=== PATIENT | male | born 1965 | race Caucasian/White ===

== ENCOUNTER 2020-11-13 10:00 | Emergency (ER) | payer BC, OTHER ==
[~2020-11-13] VITALS: Ht 175.2 cm; Wt 109.0 kg
--- NOTE | 2020-11-13 10:16 | ED Chest Pain ---
General Chief Complaint: Chest Pain Stated Complaint: CHEST PAIN History of Present Illness Date Seen by Provider: Nov 13, 2020 Time Seen by Provider: 10:10 Initial Comments 55-year-old male presents with right-sided chest pain along with pain in his ne ck and jaw. He does state however he has had problems with tooth pain and ear infection. Patient reports that the pain has been gone for about 2 hours. Patient reports nothing seems to make the pain better or worse. He denies any fever or chills. He does have a mild cough. He is fully vaccinated for coronavirus. Patient also reports a headache, no nausea vomiting diarrhea. He denies any sore throat. Allergies and Home Medications Allergies Coded Allergies: No Known Drug Allergies (Unverified , 11/13/20) Patient Home Medication List Home Medication List Reviewed: Yes Review of Systems Review of Systems Constitutional: No chills, No dizziness, No fever Respiratory: Cough Cardiovascular: Chest Pain Gastrointestinal: Denies Abdominal Pain, Denies Nausea, Denies Vomiting Musculoskeletal: no symptoms reported Skin: no symptoms reported Psychiatric/Neurological: Headache Endocrine: No Symptoms Reported Physical Exam Vital Signs Vital Signs - First Documented 11/13/20 10:00 Temp 36.8 Pulse 87 Resp 20 B/P (MAP) 146/80 (102) Pulse Ox 98 O2 Delivery Room Air Capillary Refill : Height, Weight, BMI Height: '" Weight: lbs. oz. kg; BMI Method: General Appearance: No Apparent Distress, WD/WN HEENT: PERRL/EOMI Neck: Non Tender, Supple Respiratory: Lungs Clear, Normal Breath Sounds Cardiovascular: Regular Rate, Rhythm, No Edema Gastrointestinal: Non Tender, Soft Extremity: Normal Capillary Refill, Normal Inspection, Normal Range of Motion Neurologic/Psychiatric: Alert, Oriented x3, No Motor/Sensory Deficits, Normal Mood/Affect, international travel consultant II-XII Norm as Tested Skin: Normal Color, Warm/Dry Progress/Results/Core Measures Results/Orders Lab Results Laboratory Tests Test 11/13/20 10:10 11/13/20 10:15 Range/Units White Blood Count 10.7 4.3-11.0 10^3/uL Red Blood Count 4.56 4.30-5.52 10^6/uL Hemoglobin 13.8 13.3-17.7 g/dL Hematocrit 43 40-54 % Mean Corpuscular Volume 94 80-99 fL Mean Corpuscular Hemoglobin 30 25-34 pg Mean Corpuscular Hemoglobin Concent 32 32-36 g/dL Red Cell Distribution Width 13.6 10.0-14.5 % Platelet Count 312 130-400 10^3/uL Mean Platelet Volume 9.0 9.0-12.2 fL Immature Granulocyte % (Auto) 1 % Neutrophils (%) (Auto) 75 42-75 % Lymphocytes (%) (Auto) 15 12-44 % Monocytes (%) (Auto) 7 0-12 % Eosinophils (%) (Auto) 2 0-10 % Basophils (%) (Auto) 1 0-10 % Neutrophils # (Auto) 8.0 H 1.8-7.8 X 10^3 Lymphocytes # (Auto) 1.6 1.0-4.0 X 10^3 Monocytes # (Auto) 0.7 0.0-1.0 X 10^3 Eosinophils # (Auto) 0.2 0.0-0.3 10^3/uL Basophils # (Auto) 0.1 0.0-0.1 10^3/uL Immature Granulocyte # (Auto) 0.1 0.0-0.1 10^3/uL Prothrombin Time 13.0 12.2-14.7 SEC INR Comment 1.0 0.8-1.4 Activated Partial Thromboplast Time 33 24-35 SEC Sodium Level 139 135-145 MMOL/L Potassium Level 3.6 3.6-5.0 MMOL/L Chloride Level 101 98-107 MMOL/L Carbon Dioxide Level 26 21-32 MMOL/L Anion Gap 12 5-14 MMOL/L Blood Urea Nitrogen 12 7-18 MG/DL Creatinine 0.73 0.60-1.30 MG/DL Estimat Glomerular Filtration Rate 111 BUN/Creatinine Ratio 16 Glucose Level 207 H 70-105 MG/DL Calcium Level 9.0 8.5-10.1 MG/DL Corrected Calcium 9.0 8.5-10.1 MG/DL Magnesium Level 1.7 1.6-2.4 MG/DL Total Bilirubin 0.3 0.1-1.0 MG/DL Aspartate Amino Transf (AST/SGOT) 53 H 5-34 U/L Alanine Aminotransferase (ALT/SGPT) 36 0-55 U/L Alkaline Phosphatase 119 40-136 U/L Myoglobin < 21.0 10.0-92.0 NG/ML Troponin I < 0.30 <0.30 NG/ML C-Reactive Protein 3.97 H <0.50 MG/DL Total Protein 7.4 6.4-8.2 GM/DL Albumin 4.0 3.2-4.5 GM/DL My Orders Orders - JOSE MATTHEWS DO Cbc With Automated Diff (11/13/20 10:16) Magnesium (11/13/20 10:16) Chest 1 View Ap/Pa Only (11/13/20 10:16) Ekg Tracing (11/13/20 10:16) Comprehensive Metabolic Panel (11/13/20 10:16) Myoglobin Serum (11/13/20 10:16) Protime With Inr (11/13/20 10:16) Partial Thromboplastin Time (11/13/20 10:16) Monitor-Rhythm Ecg Trace Only (11/13/20 10:16) Lipid Panel (11/14/20 06:00) Aspirin Chewable Tablet (Baby Aspirin Ch (11/13/20 10:30) Ed Iv/Invasive Line Start (11/13/20 10:16) Troponin I Fs (11/13/20 10:16) Covid 19 Inhouse Test (11/13/20 10:16) Crp Fs (11/13/20 10:41) Medications Given in ED Current Medications Medications Dose Ordered Sig/Jason Route Start Time Stop Time Status Last Admin Dose Admin Aspirin 324 mg ONCE ONCE PO 11/13/20 10:30 11/13/20 10:31 DC 11/13/20 10:21 324 MG Vital Signs/I&O 11/13/20 10:00 Temp 36.8 Pulse 87 Resp 20 B/P (MAP) 146/80 (102) Pulse Ox 98 O2 Delivery Room Air Progress Progress Note : Progress Note Patient with likely viral right lower lobe pneumonia with pleural effusion. Patient also has probably a dental infection with quite a bit of pain and his tooth and going into his ear. I will treat him for the dental infection. Discussed with him that the pneumonia seems to be viral and there is no treatment for supportive care. Patient should drink plenty of fluids Tylenol and ibuprofen as needed and is discharged home. Initial ECG Impression Date: Nov 13, 2020 Initial ECG Impression Time: 10:03 Initial ECG Rate: 88 Initial ECG Rhythm: Normal Sinus Initial ECG Intervals incomplete RBBB Initial ECG Impression: Nonspecific Changes Diagnostic Imaging Diagonstic Imaging: Xray Plain Films/CT/US/NM/MRI: chest Comments Date of Exam:11/13/20 CHEST 1 VIEW AP/PA ONLY INDICATION: Chest pain. TIME OF EXAM: 10:10 AM No prior studies are available for comparison. The heart size is normal. There appears to be some infiltrate or atelectasis in the right base as well as a small right effusion. Left lung is clear. No pneumothorax is detected. IMPRESSION: Right basilar infiltrate or atelectasis and small right effusion. Reviewed: Reviewed by Me, Reviewed/Discussed Departure Impression Primary Impression: Dental infection Additional Impression: Viral pneumonia, unspecified Disposition: HOME, SELF-CARE Condition: Stable Departure-Patient Inst. Referrals: LORNA LEMUS APRN (PCP/Family) Primary Care Physician Patient Instructions: Dental Pain, Pneumonia, Adult ED, VIRAL SYNDROME Add. Discharge Instructions: Tylenol or ibuprofen as needed Drink plenty of fluids and stay well-hydrated Follow-up with your primary care provider next week for recheck of today's symptom All discharge instructions reviewed with patient and/or family. Voiced understanding. Scripts Amoxicillin (Amoxicillin) 500 Mg Capsule 500 MG PO TID, #21 CAP 0 Refills Prov: JOSE MATTHEWS DO 11/13/20 JOSE MATTHEWS DO Nov 13, 2020 10:15
--- OUTSIDE RECORDS SUMMARY | 2020-11-13 10:19 | XMS REPORT | Clinical Summary ---
Author Author [facility] Organization [facility] Address Unknown Phone Unavailable Care Team Providers Care Web Press Roll Tender Name Role Phone PCP Unavailable Allergies Not on File Medications Not on file Active Problems Not on file Social History Date Tobacco Use Types Packs/Day Years Used Never Assessed Sex Assigned at Date Recorded Not on file Last Filed Vital Signs Not on file Plan of Treatment Not on file Results Not on filefrom Last 3 Months
[2020-11-13 10:24] LABS: WHITE BLOOD COUNT 10.7 10^3/uL (4.3-11.0)
[2020-11-13 10:25] LABS: BASOPHILS % (AUTO) 1 % (0-10); EOSINOPHILS % (AUTO) 2 % (0-10); HEMATOCRIT 43 % (40-54); HEMOGLOBIN 13.8 g/dL (13.3-17.7); LYMPHOCYTES % (AUTO) 15 % (12-44); MEAN CORPUSCULAR HEMOGLOBIN 30 pg (25-34); MEAN CORPUSCULAR HGB CONC 32 g/dL (32-36); MEAN CORPUSCULAR VOLUME 94 fL (80-99); MONOCYTES % (AUTO) 7 % (0-12); NEUTROPHILS % (AUTO) 75 % (42-75); PLATELET COUNT 312 10^3/uL (130-400)
[2020-11-13 10:26] LABS: BASOPHILS # (AUTO) 0.1 10^3/uL (0.0-0.1); EOSINOPHILS # (AUTO) 0.2 10^3/uL (0.0-0.3); LYMPHOCYTES # (AUTO) 1.6 X 10^3 (1.0-4.0); MONOCYTES # (AUTO) 0.7 X 10^3 (0.0-1.0)
[2020-11-13] MEDS ORDERED: ASPIRIN 81 MG CHEW (CHILDREN'S ASA) PO ONE (10:30)
--- NOTE | 2020-11-13 10:37 | Diagnostic Imaging Report ---
INDICATION: Chest pain. TIME OF EXAM: 10:10 AM No prior studies are available for comparison. The heart size is normal. There appears to be some infiltrate or atelectasis in the right base as well as a small right effusion. Left lung is clear. No pneumothorax is detected. IMPRESSION: Right basilar infiltrate or atelectasis and small right effusion. Dictated by: Dictated on workstation # [id number]
[2020-11-13 11:21] LABS: BUN/CREATININE RATIO 16; CARBON DIOXIDE 26 MMOL/L (21-32); CHLORIDE 101 MMOL/L (98-107); CREATININE SERUM 0.73 MG/DL (0.60-1.30); GFR ESTIMATED 111; POTASSIUM 3.6 MMOL/L (3.6-5.0); SODIUM 139 MMOL/L (135-145)
[2020-11-13 11:22] LABS: ALANINE AMINOTRANSFERASE 36 U/L (0-55); ALKALINE PHOSPHATASE 119 U/L (40-136); BILIRUBIN,TOTAL 0.3 MG/DL (0.1-1.0); GLUCOSE 207 MG/DL (70-105); MAGNESIUM 1.7 MG/DL (1.6-2.4); TOTAL PROTEIN 7.4 GM/DL (6.4-8.2)
[2020-11-13] MEDS ORDERED: AMOX500C2 PO (11:35)
[2020-11-13 11:39] VITALS: BP 140/83
== END 2020-11-13 11:39 | disposition home or self-care (01) ==
LOC: ER FS 10:01
DX: K04.7 Periapical abscess without sinus (principal); J12.9 Viral pneumonia, unspecified; Z20.822 Contact with and (suspected) exposure to COVID-19
CPT/HCPCS: 36415; 71045; 80053; 83735; 83874; 84484; 85025; 85610; 85730; 86141; 87636; 93005; 93041